=== PATIENT | male | born 1940 | race Caucasian/White ===

== ENCOUNTER 2019-06-04 10:01 | Outpatient (CLI) | payer OTHER, SELFPAY ==
[2019-06-04 10:10] VITALS: BP 107/68; PULSE 58; RESP 20; TEMP 36.6; O2SAT 95
[2019-06-04 10:50] VITALS: BP 128/94; PULSE 59; RESP 17; O2SAT 97
[2019-06-04] MEDS: Dexamethasone Sod. Phos./Pres-Free 10 MG/ML VIAL IJ (10:50)
[2019-06-04] MEDS: Omnipaque 240 MG/ML 50 ML BTL IJ (10:51)
--- NOTE | 2019-06-04 10:57 | PDOC.PAIN_ITS ---
Pain Clinic Procedure Note Procedure Note Procedure Note: LUMBAR / SACRAL TRANSFORAMINAL INJECTION JOSE OSEI has been referred to the [facility] for a transforaminal nerve root block and steroid injection. 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 There were no medical, pharmacologic, radiographic or other structural contraindications to attempting fluoroscopically guided transforaminal nerve root block and epidural steroid injection. Risks and expected side effects as well as potential benefit of the procedure were reviewed and voiced concerns addressed. The printed consent form was signed and witnessed. Standard time-out procedure was performed. Patient was placed in the prone position on the fluoroscopy table and automated blood pressure cuff and pulse oximeter applied. Fluoroscopy was utilized to identify the left L5 neural foramen. A skin yasmin was made for the needle insertion site. A Chlorhexadine prep was carried out, and sterile drapes were applied. Local anesthesia was achieved in the skin and subcutaneous tissues. A 22 gauge curved tip 5'' spinal needle was then inserted, advanced with fluoroscopic guidance into the neural foramen, confirmed on the lateral view. After negative aspiration, 2 ml of Omnipaque 240 was injected confirming position in A/P and lateral views. This showed a good spread of dye transforaminally into the epidural space. There was no vascular update with contrast injection under continuous fluoroscopy and digital substraction. 10 mg of Dexamethasone was injected, followed by 1 ml of 1% Xylocaine flush for the nerve root block, as well. There was no unusual discomfort expressed except patient reported reproduction of his usual pain pattern down his left leg. The needle was withdrawn. The patient tolerated the procedure well. A Band-Aid was applied. Vital signs were stable throughout the procedure and were as recorded in nursing records. If given, dosages of intravenous drugs for anxiolysis and analgesia were documented in nursing records. Follow up plans and appointments were discussed. Post procedure instruction was given as documented in nursing records and patient was discharged in the care of an identified delivery driver/supervisor. COMMENTS: patient was instructed to follow up with amount of pain relief as well as duration of pain relief from today's procedure. If this injection provides significant pain relief for sustained period of time, it can be repeated up to three times per 12 months period. however, if it provides significant pain relief that only provides transient pain relief, then patient should consult a surgeon to discuss surgical options such as a left L5 foraminotomy. he voiced understanding. Leopoldo Call MD Pain Management CC: Emily Ny
--- NOTE | 2019-06-04 11:41 | DI.RAD_ITS ---
EXAM: XR PAIN CLINIC LUMBAR SP 2V CLINICAL HISTORY: Dx: Lumbar Radiculopathy,TRANSFORAMINAL EPIDURAL STEROID INJECTION TECHNIQUE: Realtime digital imaging was performed. COMPARISON: No exams were available for comparison FINDINGS: Fluoroscopy was utilized by Dr. Call during the performance of a transforaminal epidural steroid inject ion. Please refer to the procedure report for complete details. FLUORO TIME: 46.3 seconds
== END 2019-06-04 10:21 ==
PROVIDERS: PCP Internal Medicine; Visit Provider Internal Medicine
DX: M54.16 Radiculopathy, lumbar region (principal); M96.1 Postlaminectomy syndrome, not elsewhere classified
CPT/HCPCS: 64483; 72100; Q9967

== ENCOUNTER 2021-07-29 08:55 | Outpatient (CLI) | payer MEDICARE, SELFPAY ==
--- NOTE | 2021-07-29 06:00 | DI.RAD_ITS ---
Exam(s) XR PAIN CLINIC LUMBAR SP 2V EXAM: XR PAIN CLINIC LUMBAR SP 2V CLINICAL HISTORY: Dx: Lumbar Spondylosis TECHNIQUE: 2D and realtime digital imaging was performed. CONTRAST MATERIAL: Refer to procedure report. COMPARISON: No exams were available for comparison FINDINGS: Fluoroscopy was provided for Dr. Salgado during the performance of a lumbar medial branch block. Marc hebert refer to the procedure report for complete details. Ka,r=21.32 mGy IMPRESSION:
[2021-07-29 09:09] VITALS: BP 107/69; PULSE 57; RESP 18; TEMP 36.7; O2SAT 98
--- NOTE | 2021-07-29 10:04 | PDOC.PAIN_ITS ---
Pain Clinic Procedure Note Procedure Note Procedure Note: Lumbar/Sacral Medial Branch Blocks JOSE OSEI has been referred to the [facility] for lumbar/sacral medial branch blocks. COMMENTS: He continued his Eliquis and Aspirin as per [facility] guidelines. DX: Lumbosacral spondylosis without myelopathy Pre-procedure pain VAS: 10/10 Patient was interviewed and the medical record reviewed. There were no medical, pharmacologic, radiographic or other structural contraindications to attempting fluoroscopically guided local anesthetic lumbar/sacral medial branch blocks. Risks and expected side effects as well as potential benefit of the procedure were reviewed and voiced concerns addressed. The printed consent form was signed and witnessed. Standard time-out procedure was performed. Patient was placed in the prone position on the fluoroscopy table and automated blood pressure cuff and pulse oximeter applied. The skin entry points for approaching the anatomic target points of the segmental medial branches of bilateral L3-L5 were identified with fluoroscopy and marked. Following thorough Chlorhexadine preparation of the skin and draping and 1% lidocaine infiltration of the skin entry points and subcutaneous tissues, a 22 gauge spinal needle was placed under fluoroscopic guidance down on to the target point for each respective segmental medial branch.Position was confirmed in A/P, oblique and lateral views with 0.25ml of omnipaque 240. At this point 0.5ml of 0.5% Bupivacaine was injected at the sensory branches. Vital signs were stable throughout the procedure and were as recorded in the docflowsheet by the nursing staff. Follow up plans and appointments were discussed and was instructed to keep careful note of how the usual pain was modified by these injections. Specifically was asked to keep a pain diary for the next 24 hours using a numeric pain scale of 0-10 and report these results at the follow-up visit. Post procedure instruction was given as documented in the nursing documentation and having met discharge criteria. Patient was discharged from the [facility] Management [facility]. Based on the medial branches blocked today, if the patient has adequate relief and we are able to proceed to radiofrequency ablation, the treatment should result in the denervation of the bilateral L4-L5 and L5-S1 FACET JOINTS. We would expect to denervate a total of 4 facets during the radiofrequency abla tion. COMMENTS: His pos-procedure pain VAS was 1/10. Elvin Salgado DO, MPH [facility]-Pain Management [facility] for Pain Management CC: Emily Ny
[2021-07-29] MEDS: Bupivacaine 0.5% Pres-Free 10 ML VIAL IJ (10:14)
[2021-07-29 10:15] VITALS: BP 117/72; PULSE 68; RESP 18; O2SAT 98
[2021-07-29] MEDS: Omnipaque 240 MG/ML 50 ML BTL IJ (10:15)
== END 2021-07-29 08:56 | disposition home or self-care (01) ==
LOC: PC 08:55
PROVIDERS: PCP Internal Medicine; Visit Provider Preventive Medicine Occupational Medicine
DX: M47.817 Spondylosis without myelopathy or radiculopathy, lumbosacral region (principal)
CPT/HCPCS: 64493; 64494; 72100; Q9967

== ENCOUNTER 2021-10-12 13:56 | Outpatient (CLI) | payer MEDICARE, SELFPAY ==
[2021-10-12 14:03] VITALS: BP 121/75; PULSE 61; RESP 20; TEMP 36.7; O2SAT 97
--- NOTE | 2021-10-12 15:01 | PDOC.PAIN ---
Pain Clinic Procedure Note Procedure Note Procedure Note: Lumbar/Sacral Medial Branch Blocks #2 JOSE OSEI has been referred to the Pain Management Center for lumbar/sacral medial branch blocks. COMMENTS: He did very well with the first LMBB on 07/29/21. His pre-procedure pain VAS was 8/10. Dx: Lumbosacral spondylosis without myelopathy. Patient was interviewed and the medical record reviewed. There were no medical, pharmacologic, radiographic or other structural contraindications to attempting fluoroscopically guided local anesthetic lumbar/sacral medial branch blocks. Risks and expected side effects as well as potential benefit of the procedure were reviewed and voiced concerns addressed. The printed consent form was signed and witnessed. Standard time-out procedure was performed. Patient was placed in the prone position on the fluoroscopy table and automated blood pressure cuff and pulse oximeter applied. The skin entry points for approaching the anatomic target points of the segmental medial branches of bilateral L3-L5 were identified with anfluoroscopy and marked. Following thorough Chlorhexadine preparation of the skin and draping and 1% lidocaine infiltration of the skin entry points and subcutaneous tissues, a 25 gauge 3.5 spinal needle was placed under fluoroscopic guidance down on to the target point for each respective segmental medial branch.Position was confirmed in A/P, oblique and lateral views with 0.25ml of omnipaque 240. At this point I injected 0.5ml 2% Lidocaine at the segmental sensory nerves. Vital signs were stable throughout the procedure and were as recorded in the docflowsheet by the nursing staff. Follow up plans and appointments were discussed and was instructed to keep careful note of how the usual pain was modified by these injections. Specifically was asked to keep a pain diary for the next 24 hours using a numeric pain scale of 0-10 and report these results at the follow-up visit. Post procedure instruction was given as documented in the nursing documentation and having met discharge criteria. Patient was discharged from the Pain Management Center. Based on the medial branches blocked today, if the patient has adequate relief and we are able to proceed to radiofrequency ablation, the treatment should result in the denervation of the bilateral L4-L5 and L5-S1 FACET JOINTS. We would expect to denervate a total of 4 facets during the radiofrequency ablation. COMMENTS: Post-procedure pain VAS was 4/10. Elvin Salgado DO, MPH [facility]-Pain Management [facility] for [facility] CC: Emily Ny
--- NOTE | 2021-10-12 15:02 | DI.RAD_ITS ---
Exam(s) XR PAIN CLINIC LUMBAR SP 2V EXAM: XR PAIN CLINIC LUMBAR SP 2V CLINICAL HISTORY: Dx: Lumbar Spondylosis TECHNIQUE: 2D and realtime digital imaging was performed. CONTRAST MATERIAL: Refer to procedure report. COMPARISON: No exams were available for comparison FINDINGS: Fluoroscopy was provided for Dr. Salgado during the performance of a lumbar medial branch block. Marc hebert refer to the procedure report for complete details. Ka,r=26.28 mGy IMPRESSION:
[2021-10-12] MEDS: Lidocaine 2% Pres-Free 5 ML VIAL IJ (15:05)
[2021-10-12] MEDS: Omnipaque 240 MG/ML 50 ML BTL IJ (15:05)
[2021-10-12 15:06] VITALS: BP 139/66; PULSE 56; RESP 22; O2SAT 95
== END 2021-10-12 13:57 | disposition home or self-care (01) ==
LOC: PC 13:57
PROVIDERS: PCP Internal Medicine; Visit Provider Preventive Medicine Occupational Medicine
DX: M47.817 Spondylosis without myelopathy or radiculopathy, lumbosacral region (principal)
CPT/HCPCS: 64493; 64494; 72100; Q9967

== ENCOUNTER 2022-01-13 10:48 | Outpatient (CLI) | payer MEDICARE, SELFPAY ==
[2022-01-13 10:57] VITALS: BP 108/62; PULSE 61; RESP 20; TEMP 36.2; O2SAT 94
[2022-01-13] MEDS: fentaNYL 100 MCG/2 ML VIAL IVP (11:22)
[2022-01-13] MEDS: Lactated Ringers 500 ML 80 ML IV (11:59)
[2022-01-13 12:01] VITALS: BP 115/58; PULSE 50; RESP 18; O2SAT 92
--- NOTE | 2022-01-13 12:05 | DI.RAD_ITS ---
Exam(s) XR PAIN CLINIC LUMBAR SP 2V EXAM: XR PAIN CLINIC LUMBAR SP 2V CLINICAL HISTORY: DX: Lumbar spondylosis TECHNIQUE: 2D and realtime digital imaging was performed. CONTRAST MATERIAL: Refer to procedure report. COMPARISON: No exams were available for comparison FINDINGS: Fluoroscopy was provided for Dr. Salgado during the performance of a bilateral lumbar radiofrequency ab lation. Please refer to the procedure report for complete details. Ka,r=25 mGy IMPRESSION:
[2022-01-13] MEDS: Bupivacaine 0.5% Pres-Free 30 ML VIAL IJ (12:14)
[2022-01-13] MEDS: methylPREDNISolone ACETATE 40 MG/ML VIAL IJ (12:14)
[2022-01-13] MEDS: Lidocaine 2% Multi-Dose 20 ML VIAL IJ (12:14)
--- NOTE | 2022-01-13 13:24 | PDOC.PAIN ---
Pain Clinic Procedure Note Procedure Note Procedure Note: Bilateral Lumbar Radiofrequency with Coolief Machine PROCEDURE NOTE Date of Service: January 13, 2022 Patient: Reymundo Maciel Provider: Elvin Salgado DO, MPH Pre Operative Diagnosis: Lumbosacral Spondylosis without Myelopathy Post Operative Diagnosis: Same Pre procedure pain; VAS= 6/10 PROCEDURE: Radiofrequency Ablation of medial branches - Bilateral L3, L4, L5 and lateral branches of bilateral S1. Reymundo Maciel was brought into the fluoroscopy suite and positioned into the prone position on the fluoroscopy table and allowed to adjust to a position of comfort. A grounding pad was placed on the right thigh. The lumbar region was widely prepped with a chloraprep solution, allowed to air dry and draped in standard sterile surgical fashion. Local anesthesia was provided by 3 mL of 2% Lidocaine delivered with a 25g needle. A 17g 100 mm radiofrequency introducer needle was placed to the planned anatomic targets guided with intermittent fluoroscopy with a perpendicular approach to terminally place at the junction of the superior articular process and the transverse process of the bilateral L4 L5, the base of the sacral ala on the [right/left/bilateral] for the L5 medial branch nerve and the area between base of the sacral ala to the S1 foramen bilaterally. The stylets were removed and radiofrequency probes with a 4mm active tip were then inserted. Needle tip position of the probes was verified in the AP, oblique, and lateral views. At each site, the medial branch nerve was stimulated at 2 Hz to a maximum 1-2 volts determined to finalize safe needle and electrode placement. The patient was awake and responsive during this portion of the procedure. Each target was anesthetized with 1-2 mL of 2% Lidocaine for anesthesia for lesioning and then each target was lesioned at 80 degrees Celsius for 2 minutes and 30 seconds. Tissue impedences were noted to be between 250 and 500 Ohms. Electrodes and needles were then removed and bandages placed over the needle placement sites, the patient then returned to the supine position on a stretcher and transported to the recovery room without hemodynamic, neurologic, or allergic reactions. Fluoroscopic images were printed for hard copy recording and digitally archived. 1/4 cc of Depomedrol (40 mg/cc) was injected at each site. This was flushed with 1 cc of 0.5% Bupivacaine. The needles were then removed. POST PROCEDURE EVALUATION: IMPRESSION: 1. Summary of procedure. Medication given is documented in the MAR. 2. The patient will be contacted in 1-3 weeks 3. Estimated Blood Loss: <5 mls 4. Fluoroscopy time: Documented in the EMR. Follow up plans and appointments were discussed with the Reymundo . Post procedure instruction was given as documented in nursing documentation and having met discharge criteria, Reymundo was discharged from the Pain Management Center. COMMENTS: No apparent complications. Post-procedure pain: VAS= 0/10. F/U with our office as needed. I personally performed this entire procedure. Elvin Salgado DO, MPH Attending Physician Pain Management
== END 2022-01-13 10:49 | disposition home or self-care (01) ==
LOC: PC 10:49
PROVIDERS: PCP Internal Medicine; Visit Provider Preventive Medicine Occupational Medicine
DX: M47.817 Spondylosis without myelopathy or radiculopathy, lumbosacral region (principal)
CPT/HCPCS: 64635; 64636; 72100; J1030; J3010; J3490

== ENCOUNTER 2023-12-12 05:25 | Outpatient (CLI) | payer MEDICARE, SELFPAY ==
[2023-12-12] MEDS: Levalbuterol HFA 15 GM INH 4 PUFF IH (09:12)
[2023-12-12] MEDS: Inhaler, Assist Device 1 EACH MC (09:13)
--- NOTE | 2023-12-12 10:31 | PFT_ITS ---
Date of service: 12/12/23 Time of Service: 08:01 Pulmonary Function Test Result Indications: Lung nodule Interpretation Spirometry: There is no airflow limitation. No bronchodilator response. There is restrictive spirometry. Lung Volumes: Normal lung volumes Diffusion Capacity: Normal diffusion Airway Pressure: Normal airways resistance Impression Normal pulmonary function. Restrictive spirometry may be due to pseudo- restriction from an elevated BMI. Clinical Correlation therefore is recommended.
== END 2023-12-12 05:26 | disposition home or self-care (01) ==
LOC: RT 05:25
PROVIDERS: PCP Internal Medicine; Visit Provider Thoracic Surgery (Cardiothoracic Vascular Surgery)
DX: R91.1 Solitary pulmonary nodule (principal)
CPT/HCPCS: 94060; 94726; 94729

== ENCOUNTER 2024-07-24 13:59 | Outpatient (CLI) | payer MEDICARE, SELFPAY ==
--- NOTE | 2024-07-24 12:45 | DI.RAD_ITS ---
Exam(s) XR KNEE LT 2V AP,LAT EXAM: XR KNEE LT 2V AP,LAT CLINICAL HISTORY: Knee pain, osteoarthritis, M17.9. TECHNIQUE: 2D digital imaging was performed. Three views. COMPARISON: No exams were available for comparison FINDINGS: BONES: No acute fracture is present. No bony destructive lesion is seen. JOINTS: Severe narrowing of the medial femoral tibial joint and prominent periarticular spurring. Va anastasiya angulation. Spurring also noted at the lateral femoral tibial joint and patellofemoral joint. T here is some irregularity at the articular surfaces of the patellofemoral joint. No joint effusion i s seen. SOFT TISSUE: Vascular calcifications. Vascular clips. IMPRESSION: Severe degenerative changes of the medial femoral tibial joint. DATA REPOSITORY: RADIATION DOSE DELIVERED:
--- NOTE | 2024-07-24 12:45 | DI.RAD_ITS ---
Exam(s) XR KNEE RT 2V AP,LAT EXAM: XR KNEE RT 2V AP,LAT CLINICAL HISTORY: Knee pain, osteoarthritis, M17.9. TECHNIQUE: 2D digital imaging was performed. Three views. COMPARISON: CR XR KNEE LT 2V AP,LAT from 07/24/2024 FINDINGS: BONES: No acute fracture is present. No bony destructive lesion is seen. JOINTS: Severe narrowing of the medial femoral tibial joint space causing varus angulation. Mild spu rring at the patellofemoral joint. No joint effusion is seen. SOFT TISSUE: Vascular calcifications. IMPRESSION: Severe degenerative changes of the medial femoral tibial joint. DATA REPOSITORY: RADIATION DOSE DELIVERED:
== END 2024-07-24 14:19 ==
LOC: DI 14:04
PROVIDERS: PCP Internal Medicine; Visit Provider Preventive Medicine Occupational Medicine
DX: M17.0 Bilateral primary osteoarthritis of knee (principal)
CPT/HCPCS: 73560

== ENCOUNTER 2024-08-07 12:03 | Outpatient (CLI) | payer MEDICARE, SELFPAY ==
[2024-08-07 12:20] VITALS: BP 118/78; PULSE 68; RESP 20; TEMP 36.7; O2SAT 97
[2024-08-07 13:09] VITALS: PULSE 65; O2SAT 95
[2024-08-07 13:10] VITALS: PULSE 66; O2SAT 95
[2024-08-07 13:20] VITALS: PULSE 69; O2SAT 96
--- NOTE | 2024-08-07 13:23 | DI.RAD_ITS ---
Exam(s) XR PAIN CLINIC FLUORO JOINT IN EXAM: XR PAIN CLINIC FLUORO JOINT IN CLINICAL HISTORY: DX: Right Knee Osteoarthritis. TECHNIQUE: Fluoroscopy was provided for the referring physician for guidance with performing pain cl inic injection procedure. COMPARISON: No exams were available for comparison FINDINGS: Please see procedure note for details. Fluoro time: 39.3 Seconds RADIATION DOSE DELIVERED: dinesh Gomez=2.18 mGy
[2024-08-07 13:30] VITALS: PULSE 66; O2SAT 94
--- NOTE | 2024-08-07 13:42 | DI.RAD_ITS ---
Exam(s) XR PAIN CLINIC FLUORO JOINT IN EXAM: XR PAIN CLINIC FLUORO JOINT IN CLINICAL HISTORY: DX: Left Knee Osteoarthritis. TECHNIQUE: Fluoroscopy was provided for the referring physician for guidance with performing pain cl inic injection procedure. COMPARISON: No exams were available for comparison FINDINGS: Please see procedure note for details. Fluoro time: 33.6 seconds RADIATION DOSE DELIVERED: dinesh Gomez=1.96 mGy
[2024-08-07] MEDS: Bupivacaine 0.5% Pres-Free 10 ML VIAL IJ (13:43)
[2024-08-07] MEDS: Nerve Block Tray 1 EACH MC (13:43)
[2024-08-07] MEDS: Omnipaque 240 MG/ML 50 ML BTL IJ (13:44)
--- NOTE | 2024-08-15 11:58 | PDOC.PAIN ---
Date of service: 08/07/24 Time of Service: 13:30 Pain Managment Procedure Note Procedure Note Procedure Note: PROCEDURE NOTE BILATERAL GENICULAR NERVE BLOCKS Date of Service: August 07, 2024 Patient: Reymundo Maciel Provider: Elvin Salgado DO, MPH Reymundo Maciel has been referred to the [facility] Management Center for Bilateral genicular nerve block. Pre-operative diagnosis: Pain in left knee M25.562 and Pain in right knee M25.561 Post-operative diagnosis: Same Pre-Procedure Pain: VAS=9/10 COMMENTS: I previously evaluated him in the office. PROCEDURE: 1. Block of the Superolateral genicular branch from the vastus lateralis 2. Block of the Superomedial genicular branch from the vastus medialis 3. Block of the Inferomedial genicular branch from the saphenous nerve 4. Block of the Terminal branch of the nerve vastus intermedius Reymundo was interviewed and the medical record reviewed. There were no medical, pharmacologic, radiographic or other structural contraindications to attempting fluoroscopically guided Left genicular nerve block. Risks and potential side effects as well as potential benefit of the procedure were reviewed with Reymundo Maciel , and the patient's voiced concerns were addressed. After I believed that the patient was completely informed, the printed consent form was signed. Standard time-out procedure was performed. After a thorough Chlorhexadine preparation of the skin and draping the skin entry points for approaching Left superolateral genicular nerve, the superomedial genicular nerve, nerve of the vastus intermedius and the inferomedial genicular was identified under the most advantageous fluoroscopic view and marked. Next, 3.5 25G spinal needle was advanced to os at the location of the specific nerve root using fluoroscopic guidance. Next 0.5 cc of 0.5% Bupivacain was injected at each site. There was no unusual discomfort expressed by Reymundo. The needles were withdrawn without difficulty. Reymundo was observed and was without hemodynamic, neurologic, or allergic reactions.? Fluoroscopic images were digitally archived. The exact procedure was completed on the right side. Reymundo's vital signs were stable throughout the procedure and were as recorded in the docflowsheet by the nursing staff. If given, dosages of intravenous drugs for anxiolysis and analgesia were documented in MAR. Follow up plans and appointments were discussed. Reymundo was instructed to keep careful note of how the usual pain was modified by these injections. Specifically, Reymundo was asked to keep a pain diary for the next 4 hours using a numeric pain scale of 0-10 and report these results. Post procedure instruction was given as documented in nursing documentation and having met discharge criteria, Reymundo was discharged from the Pain Management Center. COMMENTS: No apparent complications. Post-procedure pain: VAS= 0/10. Reymundo will call back with 0-4 hour post-procedure pain scores. I personally completed the entire procedure. ELVIN SALGADO DO, MPH [employer] - Subspecialty board certification in Pain Medicine [facility]-Center for Pain Management
== END 2024-08-07 12:04 | disposition home or self-care (01) ==
PROVIDERS: PCP Internal Medicine; Visit Provider Preventive Medicine Occupational Medicine
DX: M25.561 Pain in right knee (principal); M25.562 Pain in left knee; M17.11 Unilateral primary osteoarthritis, right knee; M17.12 Unilateral primary osteoarthritis, left knee
CPT/HCPCS: 64454; 77002; J0665; Q9967

== ENCOUNTER 2024-08-28 07:58 | Outpatient (CLI) | payer MEDICARE, SELFPAY ==
[2024-08-28] VITALS (10 sets, daily range): BP systolic 96–113; BP diastolic 60–89; PULSE 0–66; RESP 14–20; TEMP 36.7; O2SAT 83–95
[2024-08-28] MEDS: fentaNYL 100 MCG/2 ML VIAL IVP ×2 (09:23→09:27)
[2024-08-28] MEDS: Midazolam 2 MG/2 ML VIAL IVP (09:24)
[2024-08-28] MEDS: Lactated Ringers 500 ML 80 ML IV (09:24)
--- NOTE | 2024-08-28 09:48 | PDOC.PAIN_ITS ---
Date of service: 08/28/24 Time of Service: 09:48 Pain Managment Procedure Note Procedure Note Procedure Note: PROCEDURE NOTE LEFT GENICULAR NERVE RADIOFREQUENCY ABLATION Date of Service: August 28, 2024 Patient: Reymundo Maciel Provider: Magno Holliday DO, MPH Reymundo Maciel has [facility] for Left genicular nerve radiofrequency ablation with the [employer] machine. Pre-operative diagnosis: Pain in left knee M25.562 Post-operative diagnosis: Same Pre-Procedure Pain: VAS=10/10 Comments: Previous genicular nerve blocks to the Left knee. PROCEDURE: 1. Superolateral genicular branch from the vastus lateralis 2. Superomedial genicular branch from the vastus medialis 3. Inferomedial genicular branch from the saphenous nerve 4.Terminal branch of the nerve vastus intermedius Reymundo was interviewed and the medical record reviewed. There were no medical, pharmacologic, radiographic or other structural contraindications to attempting fluoroscopically guided Left genicular nerve radiofrequency ablation. Risks and potential side effects as well as potential benefit of the procedure were reviewed with Reymundo Maciel , and the patient's voiced concerns were addressed. After I believed that the patient was completely informed, the printed consent form was signed. Standard time-out procedure was performed. Reymundo Maciel was brought into brought to the procedure room and placed on the fluoroscopy table in a comfortable supine position and automated blood pressure cuff and pulse oximeter applied. A grounding pad was placed on the left ankle. The place for needle placement was obtained by manual palpation with radiographic confirmation. The skin entry points for approaching Left superolateral genicular nerve, the superomedial genicular nerve, nerve of the vastus intermedius and the inferomedial genicular was identified under the most advantageous fluoroscopic view and marked. Following thorough Chlorhexadine preparation of the skin and draping, 1% lidocaine infiltration of the skin entry point and subcutaneous tissues was accomplished using a 1.5 25G needle. Next, the 17G 50 mm radiofrequency cannula needle with a 4mm active tip was advanced to os at the location of the specific nerve roots (4) using fluoroscopic guidance. Next, motor testing was performed and no abnormal findings were found. Next, 1 cc of 2% Lidocaine was injected at each site after negative aspiration. The lesion was then created with 80 degrees Celsius for 2 minutes and 30 seconds each. 1/4 cc of Depo-Medrol (40 mg/cc) was then injected at each site followed by 1 cc of 0.5% Bupivacaine as the needle was withdrawn. There was no unusual discomfort expressed by Reymundo. The needles were withdrawn without difficulty. Reymundo was observed and was without hemodynamic, neurologic, or allergic reactions.? Fluoroscopic images were digitally archived. Reymundo's vital signs were stable throughout the procedure and were as recorded in the docflowsheet by the nursing staff. If given, dosages of intravenous drugs for anxiolysis and analgesia were documented in MAR. POST PROCEDURE EVALUATION: IMPRESSION: 1. Medication given is documented in the MAR 2. Follow up plan: Reymundo to contact [facility] needed. This procedure may be repeated if the patient achieves at least 50% improvement in pain and/or function for at least 6 months. 3. Estimated Blood Loss: <5ml 4. Fluoroscopy time: Documented in the EMR Follow up plans and appointments were discussed with Reymundo. Post procedure instruction was given as documented in nursing documentation and having met discharge criteria, Reym[facility] was [facility] from the [facility]. This advanced procedure uses cooled radiofrequency energy to safely target the sensory nerves responsible for sending pain signals.1 A radiofrequency generator transmits a small current of Radiofrequency energy through an insulated electrode, or probe, placed within tissue. Ionic heating, produced by the friction of charged molecules, thermally deactivates the nerves responsible for sending pain signals to the brain. Radiofrequency energy heats and cools the tissue at the site of pain. Unlike other Radiofrequency procedures, Coolief circulates water through the device while heating nervous tissue to create a larger treatment area, increasing the opportunity to help with pain. This combination targets the pain- transmitting nerves without excessive heating, leading to pain relief. COMMENTS: No apparent complications. Post-procedure pain: VAS= 0/10. Harrell WJ1, Asif SJ, Lul JG, Letty JG, Ruiz GUY, Park PH, Juve JW. Radiofrequency treatment relieves chronic knee osteoarthritis pain: a double-blind randomized controlled trial. Pain. 2010;152(3):481-7. doi: 10.1016/j.pain.2010.09.029. Sally S1, Dhaval ON2, Shannan Y3, ?zl?lerjúnior P2, Deven U1, Kenroy ?m?rl? I. Which one is more effective for the clinical treatment of chronic pain in knee osteoarthritis: radiofrequency neurotomy of the genicular nerves or intra- articular injection? Int J Rheum Dis. 2016 Feb 11. I personally completed the entire procedure. MAGNO HOLLIDAY DO, MPH ABPM&R - Subspecialty board certification in Pain Medicine [facility]
--- NOTE | 2024-08-28 09:49 | DI.RAD_ITS ---
Exam(s) XR PAIN CLINIC FLUORO JOINT IN EXAM: XR PAIN CLINIC FLUORO JOINT IN CLINICAL HISTORY: Dx: Osteoarthritis Left Knee. TECHNIQUE: Fluoroscopy was provided for the referring physician for guidance with performing pain cl inic injection procedure. COMPARISON: No exams were available for comparison FINDINGS: Please see procedure note for details. Fluoro time: 43.4 seconds RADIATION DOSE DELIVERED: dinesh Gomez=2.52 mGy
[2024-08-28] MEDS: Bupivacaine 0.5% Pres-Free 10 ML VIAL IJ (10:04)
[2024-08-28] MEDS: Lidocaine 2% Multi-Dose 20 ML VIAL IJ (10:05)
[2024-08-28] MEDS: methylPREDNISolone ACETATE 40 MG/ML VIAL IJ (10:05)
[2024-08-28] MEDS: Nerve Block Tray 1 EACH MC (10:06)
== END 2024-08-28 07:59 | disposition home or self-care (01) ==
LOC: PC 07:58
PROVIDERS: PCP Internal Medicine; Visit Provider Preventive Medicine Occupational Medicine
DX: M25.562 Pain in left knee (principal); M17.12 Unilateral primary osteoarthritis, left knee
CPT/HCPCS: 64624; 77002; J0665; J1010; J2003; J2250; J3010

== ENCOUNTER 2024-09-18 06:55 | Outpatient (CLI) | payer MEDICARE, SELFPAY ==
[2024-09-18] VITALS (12 sets, daily range): BP systolic 98–133; BP diastolic 59–68; PULSE 61–71; RESP 13–20; TEMP 36.7; O2SAT 91–95
--- NOTE | 2024-09-18 06:00 | DI.RAD_ITS ---
Exam(s) XR PAIN CLINIC FLUORO JOINT IN EXAM: XR PAIN CLINIC FLUORO JOINT IN CLINICAL HISTORY: Dx: Osteoarthritis Right Knee. TECHNIQUE: Fluoroscopy was provided for the referring physician for guidance with performing pain cl inic injection procedure. COMPARISON: No exams were available for comparison FINDINGS: Please see procedure note for details. Fluoro time: 34.3 seconds RADIATION DOSE DELIVERED: dinesh Gomez=1.81 mGy
[2024-09-18] MEDS: Lactated Ringers 500 ML 80 ML IV (08:19)
[2024-09-18] MEDS: Nerve Block Tray 1 EACH MC (08:19)
[2024-09-18] MEDS: fentaNYL 100 MCG/2 ML VIAL IVP (08:19)
[2024-09-18] MEDS: methylPREDNISolone ACETATE 40 MG/ML VIAL IJ (08:51)
[2024-09-18] MEDS: Bupivacaine 0.5% Pres-Free 10 ML VIAL IJ (08:52)
[2024-09-18] MEDS: Lidocaine 2% Multi-Dose 20 ML VIAL IJ (08:53)
--- NOTE | 2024-09-18 10:13 | PDOC.PAIN ---
Date of service: 09/18/24 Time of Service: 09:00 Pain Managment Procedure Note Procedure Note Procedure Note: PROCEDURE NOTE RIGHT GENICULAR NERVE RADIOFREQUENCY ABLATION Date of Service: September 18, 2024 Patient: Reymundo Maciel Provider: Magno Holliday DO, MPH Reymundo Maciel has been [facility] to [facility] for Right genicular nerve radiofrequency ablation with the [email or web address] machine. Pre-operative diagnosis: Pain in right knee M25.561 Post-operative diagnosis: Same Pre-Procedure Pain: VAS=7/10 Comments: Previous genicular nerve blocks to the Right knee. PROCEDURE: 1. Superolateral genicular branch from the vastus lateralis 2. Superomedial genicular branch from the vastus medialis 3. Inferomedial genicular branch from the saphenous nerve 4.Terminal branch of the nerve vastus intermedius Reymundo was interviewed and the medical record reviewed. There were no medical, pharmacologic, radiographic or other structural contraindications to attempting fluoroscopically guided Right genicular nerve radiofrequency ablation. Risks and potential side effects as well as potential benefit of the procedure were reviewed with Reymundo Maciel , and the patient's voiced concerns were addressed. After I believed that the patient was completely informed, the printed consent form was signed. Standard time-out procedure was performed. Reymundo Maciel was brought into brought to the procedure room and placed on the fluoroscopy table in a comfortable supine position and automated blood pressure cuff and pulse oximeter applied. A grounding pad was placed on the right ankle. The place for needle placement was obtained by manual palpation with radiographic confirmation. The skin entry points for approaching Right superolateral genicular nerve, the superomedial genicular nerve, nerve of the vastus intermedius and the inferomedial genicular was identified under the most advantageous fluoroscopic view and marked. Following thorough Chlorhexadine preparation of the skin and draping, 1% lidocaine infiltration of the skin entry point and subcutaneous tissues was accomplished using a 1.5 25G needle. Next, the 17G 50 mm radiofrequency cannula needle with a 4mm active tip was advanced to os at the location of the specific nerve roots (4) using fluoroscopic guidance. Next, motor testing was performed and no abnormal findings were found. Next, 1 cc of 2% Lidocaine was injected at each site after negative aspiration. The lesion was then created with 80 degrees Celsius for 2 minutes and 30 seconds each. 1/4 cc of Depo-Medrol (40 mg/cc) was then injected at each site followed by 1 cc of 0.5% Bupivacaine as the needle was withdrawn. There was no unusual discomfort expressed by Reymundo. The needles were withdrawn without difficulty. Reymundo was observed and was without hemodynamic, neurologic, or allergic reactions.? Fluoroscopic images were digitally archived. Reymundo's vital signs were stable throughout the procedure and were as recorded in the docflowsheet by the nursing staff. If given, dosages of intravenous drugs for anxiolysis and analgesia were documented in MAR. POST PROCEDURE EVALUATION: IMPRESSION: 1. Medication given is documented in the MAR 2. Follow up plan: Reymundo to contact [facility] needed. This procedure may be repeated if the patient achieves at least 50% improvement in pain and/or function for at least 6 months. 3. Estimated Blood Loss: <5ml 4. Fluoroscopy time: Documented in the EMR Follow up plans and appointments were discussed with Reymundo. Post procedure instruction was given as documented in nursing documentation and having met discharge criteria, Reymundo was [facility] from the [facility]. This advanced procedure uses cooled radiofrequency energy to safely target the sensory nerves responsible for sending pain signals.1 A radiofrequency generator transmits a small current of Radiofrequency energy through an insulated electrode, or probe, placed within tissue. Ionic heating, produced by the friction of charged molecules, thermally deactivates the nerves responsible for sending pain signals to the brain. Radiofrequency energy heats and cools the tissue at the site of pain. Unlike other Radiofrequency procedures, Coolief circulates water through the device while heating nervous tissue to create a larger treatment area, increasing the opportunity to help with pain. This combination targets the pain-transmitting nerves without excessive heating, leading to pain relief. COMMENTS: No apparent complications. Post-procedure pain: VAS= 0/10. Harrell WJ1, Asif SJ, Lul JG, Letty JG, Ruiz GUY, Park PH, Juve JW. Radiofrequency treatment relieves chronic knee osteoarthritis pain: a double-blind randomized controlled trial. Pain. 2010;152(3):481-7. doi: 10.1016/j.pain.2010.09.029. Sally S1, Dhaval ON2, Shannan Y3, ?zl?lerden P2, Deven U1, Kenroy ?m?rl? I. Which one is more effective for the clinical treatment of chronic pain in knee osteoarthritis: radiofrequency neurotomy of the genicular nerves or intra-articular injection? Int J Rheum Dis. 2016 Feb 11. I personally completed the entire procedure. MAGNO HOLLIDYA DO, MPH ABPM&R - Subspecialty board certification in Pain Medicine [facility] Coding Conscious Sedation used for procedure: Yes CPT Codes: Genicular 3-4 Nerve RFA - 87424M ([id number]~G) Additional Codes: Date of Service (14906) Date of service: 09/18/24
== END 2024-09-18 06:56 | disposition home or self-care (01) ==
LOC: PC 06:56
PROVIDERS: PCP Family Medicine; Visit Provider Preventive Medicine Occupational Medicine
DX: M25.561 Pain in right knee (principal)
CPT/HCPCS: 64624; 77002; J0665; J1010; J2003; J3010

== ENCOUNTER 2024-10-10 14:05 | Outpatient (CLI) | payer MEDICARE, SELFPAY ==
[2024-10-10 14:14] VITALS: BP 120/89; PULSE 81; RESP 20; TEMP 36.7; O2SAT 97
[2024-10-10 14:31] VITALS: PULSE 60; RESP 22; O2SAT 96
[2024-10-10 14:32] VITALS: BP 132/79; PULSE 61; RESP 18; O2SAT 96
[2024-10-10 14:40] VITALS: PULSE 57; PULSE 62; RESP 18; O2SAT 96
[2024-10-10 14:46] VITALS: BP 129/80; PULSE 55; PULSE 61; RESP 17; O2SAT 96
--- NOTE | 2024-10-10 14:46 | PDOC.PAIN ---
Date of service: 10/10/24 Time of Service: 14:46 Pain Managment Procedure Note Procedure Note Procedure Note: PROCEDURE NOTE Bilateral Lumbar Medial Branch Blocks Date of Service: October 10, 2024 Patient: Reymundo Maciel Provider: Elvin Salgado DO, MPH Reymundo Maciel has been referred to the [facility] for lumbar medial branch blocks. 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 He had RFA at these medial branches on 02/27/22 and had >2 years of >50% pain relief. This pain has mostly returned. Hemanth was interviewed and the medical records were reviewed. There were no medical, pharmacologic, radiographic or other structural contraindications to attempting fluoroscopically guided local anesthetic lumbar medial branch blocks. Risks and potential side effects were discussed. I also discussed the potential benefit(s) of the procedure with Reymundo, and voiced concerns were addressed. After Reymundo was completely informed about the procedure, the printed consent form was signed. A standard time-out procedure was performed. Reymundo was placed in the prone position on the fluoroscopy table. Automated blood pressure cuff and pulse oximeter were applied. The skin entry points for approaching the anatomic target points of the segmental medial branches of bilateral L3,L4,L5 were identified with fluoroscopy and marked. The skin at the target site area was thoroughly prepared with Chlorhexadine. The skin was then draped. Next, a 25 gauge 3.5 spinal needle was placed under fluoroscopic guidance down on to the target point (the articular pillar) for each respective segmental medial branch. Position was confirmed in A/P and lateral views. Aspiration revealed no blood or clear fluid. Next, 0.25ml of omnipaque 240 was injected at each level. No contrast following a vascular or neural pattern was visualized under continuous fluoroscopy. Next, 0.25 ml of preservative-free 0.5% bupivicaine was injected at each level. There was no unusual discomfort expressed by Reymundo. The needles were withdrawn without difficulty. (49 mls of Omnipaque was wasted) Reymundo was observed and was without hemodynamic, neurologic, or allergic reactions.? Fluoroscopic images were digitally archived. Provacative testing using the Modified Mcgovern's facet loading test- Left side Right Side Directly before the block VAS (0-10) = 7/10 VAS (0-10) = 7/10 Five minutes after the block VAS (0-10) = 4/10 VAS (0-10) = 4/10 Percentage relief obtained with this diagnostic block 50% 50% Any improved physical functioning directly after the blocks? Able to move his back without much pain Follow up plans and appointments were discussed with Reymundo. Reymundo was instructed to keep careful note of how the usual pain was modified by these injections. Specifically, to keep a pain diary for the next 4 hours using a numeric pain scale of 0-10 and report these results. Post procedure instruction was given as documented in the nursing documentation and having met discharge criteria, the patient was discharged from the [facility]. Based on the medial branches blocked today, if they patient has adequate relief and we are able to proceed to radiofrequency ablation, the treatment should result in the denervation of the bilateral L4-L5 and L5-S1 facet joints. We would expect to denervate a total of 4 facets during the radiofrequency ablation. COMMENTS: No apparent complications. Post-procedure pain: VAS= 4/10 Reymundo will call back with 0-4 hour post-procedure pain scores. I personally performed the entire procedure. ELVIN SALGADO DO, MPH ABPM&R-subspecialty board certification in Pain Medicine [facility] Coding Conscious Sedation used for procedure: No CPT Codes: LMBB (includes Fluoro) Lumbar/Sacral, single lvl *BILATERAL* - [id number] ([id number]~G5) LMBB (includes Fluoro) Lumbar/Sacral, 2nd lvl - 66903 ([id number] ~G) Additional Codes: Date of Service (39594) Date of service: 10/10/24
--- NOTE | 2024-10-10 14:49 | DI.RAD_ITS ---
Exam(s) XR PAIN CLINIC LUMBAR SP 2V EXAM: XR PAIN CLINIC LUMBAR SP 2V CLINICAL HISTORY: DX: Lumbar Spondylosis TECHNIQUE: 2D and realtime digital imaging was performed. CONTRAST MATERIAL: Refer to procedure report. COMPARISON: No exams were available for comparison FINDINGS: Fluoroscopy was provided for Dr. Salgado during the performance of a bilateral lumbar block. Please re joanne to the procedure report for complete details. Ka,r=27.0 mGy IMPRESSION: RADIATION DOSE DELIVERED: 0.0 0.0 0
[2024-10-10] MEDS: Omnipaque 240 MG/ML 50 ML BTL IJ (14:52)
[2024-10-10] MEDS: Nerve Block Tray 1 EACH MC (14:52)
[2024-10-10] MEDS: Bupivacaine 0.5% Pres-Free 10 ML VIAL IJ (14:53)
== END 2024-10-10 14:06 | disposition home or self-care (01) ==
LOC: PC 14:06
PROVIDERS: PCP Family Medicine; Visit Provider Preventive Medicine Occupational Medicine
DX: M54.50 Low back pain, unspecified (principal); M47.816 Spondylosis without myelopathy or radiculopathy, lumbar region
CPT/HCPCS: 64493; 64494; 72100; J0665; Q9967